=== PATIENT | female | born 1945 | race Two or more races ===

== ENCOUNTER 2021-05-20 06:32 | Day surgery (SDC) | payer OTHER ==
[~2021-05-20 06:32] MED LIST: BONIVA150 MG PO; CRESTOR20 MG PO; DICLOFENAC SOD100 GM TOP; GABAPENTIN800 M1 PO; LASIX20 MG PO; METFORMIN HCL500 M3 PO; SYNTHROID100 MCG PO; VASOTEC20 M1 PO
== END 2021-05-20 17:45 | disposition home or self-care (01) ==
LOC: CIR.AMB 06:32
PROVIDERS: ATTEND Orthopaedic Surgery Hand Surgery
DX: M65.322 Trigger finger, left index finger (principal); M19.242 Secondary osteoarthritis, left hand; G56.02 Carpal tunnel syndrome, left upper limb; Z20.822 Contact with and (suspected) exposure to COVID-19

== ENCOUNTER 2023-10-06 12:41 | Inpatient (IN) | payer OTHER ==
[~2023-10-06] VITALS: Ht 157.5 cm; Wt 68.9 kg
[2023-10-06 17:02] LABS: HEMATOCRIT 30.9 % (36.0-45.00); HEMOGLOBIN 10.1 g/dL (12.0-15.00); MEAN CELL VOLUME 87.8 fL (80.00-100.00); MEAN CORPUSCULAR HEMOGLOBIN 28.8 pg (27.00-32.0); MEAN CORPUSCULAR HGB CONC 32.8 g/dl (32.0-36.0); PLATELET COUNT 297 K/uL (150-450); RED BLOOD COUNT 3.52 M/uL (4.00-6.00); RED CELL DISTRIBUTION WIDTH 14.6 % (11.5-14.5)
[2023-10-06 17:26] LABS: ALBUMIN 2.9 gm/dL (3.4-5.0); BILIRUBIN TOTAL 0.61 mg/dL (0.3-1.2); BILIRUBIN,CONJUGATED 0.12 mg/dL (0.0-0.2); BILIRUBIN,UNCONJUGATED 0.49 mg/dL (0.0-0.6); CALCIUM 9.3 mg/dL (8.5-10.1); CREATININE SERUM 1.28 mg/dL (0.55-1.02); GFR 40.33; GLOBULINA 4.2 G/DL (2.4-3.5); POTASSIUM 4.43 mEq/L (3.5-5.1); TOTAL PROTEIN 7.1 gm/dL (6.4-8.2)
[2023-10-06 17:43] LABS: PH,URINE 6.5 (5.0-8.0); URINE APPEARANCE Clear; URINE BILIRRUBIN Negative (NEGATIVE); URINE BLOOD Negative; URINE COLOR Dark Yellow; URINE GLUCOSE Negative (NEGATIVE); URINE LEUKOCYTE Negative; URINE NITRATE Negative
[2023-10-06 17:47] LABS: URINE BACTERIA 137.3 uL (0.0-1933); URINE EPITHELIAL CELLS 10.6 uL (0.0-38.8); URINE WBC 8.1 uL (0.0-23.2)
[2023-10-06 17:51] LABS: URINE PROTEIN 100 (NEGATIVE)
[2023-10-07 07:02] LABS: HEMATOCRIT 33.1 % (36.0-45.00); HEMOGLOBIN 10.9 g/dL (12.0-15.00); MEAN CELL VOLUME 89.5 fL (80.00-100.00); MEAN CORPUSCULAR HEMOGLOBIN 29.4 pg (27.00-32.0); MEAN CORPUSCULAR HGB CONC 32.9 g/dl (32.0-36.0); PLATELET COUNT 293 K/uL (150-450); RED CELL DISTRIBUTION WIDTH 14.3 % (11.5-14.5)
[2023-10-07 07:25] LABS: ALBUMIN 2.7 gm/dL (3.4-5.0); BILIRUBIN TOTAL 0.55 mg/dL (0.3-1.2); CALCIUM 8.8 mg/dL (8.5-10.1); CREATININE SERUM 1.22 mg/dL (0.55-1.02); GFR 42.63; GLOBULINA 3.8 G/DL (2.4-3.5); MAGNESIUM 2.2 mg/dL (1.8-2.4); POTASSIUM 4.79 mEq/L (3.5-5.1); TOTAL PROTEIN 6.5 gm/dL (6.4-8.2)
[2023-10-07 07:26] LABS: C-REACTIVE PROTEIN 16.9 MG/DL (0.00-0.29)
[2023-10-07 07:52] LABS: ERYTHROCYTE SEDIMENTATION RATE > 130 mm/hr
[2023-10-08 08:10] LABS: CA 27.29 334.5 U/mL (0.0-38.6)
[2023-10-08 21:02] LABS: TP PERITONEAL FLUID 4.8 g/dl
== END 2023-10-09 19:27 | disposition home or self-care (01) | DRG 683 ==
LOC: ER 12:41 → MEDI 21:57 → SEC-K 10-07 01:12 → MEDI 10-07 01:14
PROVIDERS: Internal Medicine Hematology & Oncology; Nurse Practitioner Family; ADMIT Internal Medicine; ATTEND Internal Medicine
PROC: 0W9G3ZZ Drainage of Peritoneal Cavity, Percutaneous Approach (ICD-10-PCS; principal; 2023-10-06)
PROC: BW21YZZ Computerized Tomography (CT Scan) of Abdomen and Pelvis using Other Contrast (ICD-10-PCS; 2023-10-06)
PROC: BW40ZZZ Ultrasonography of Abdomen (ICD-10-PCS; 2023-10-06)
PROC: BW4GZZZ Ultrasonography of Pelvic Region (ICD-10-PCS; 2023-10-06)
DX: N17.9 Acute kidney failure, unspecified (principal); C56.3 Malignant neoplasm of bilateral ovaries; R18.0 Malignant ascites; I12.9 Hypertensive chronic kidney disease with stage 1 through stage 4 chronic kidney disease, or unspecified chronic kidney disease; E11.22 Type 2 diabetes mellitus with diabetic chronic kidney disease; N18.9 Chronic kidney disease, unspecified; Z79.4 Long term (current) use of insulin; E03.9 Hypothyroidism, unspecified; D23.9 Other benign neoplasm of skin, unspecified; N83.202 Unspecified ovarian cyst, left side